=== PATIENT | female | born 1990 | race American Indian/Alaskan Native ===

== ENCOUNTER 2018-12-30 19:10 | Outpatient (CLI) | payer MEDICAID ==
[2018-12-30 20:50] VITALS: BP 112/74
== END 2018-12-30 20:18 | disposition home or self-care (01) ==
LOC: TRG 19:10
PROVIDERS: ATTEND Obstetrics & Gynecology
DX: O47.03 False labor before 37 completed weeks of gestation, third trimester (principal); Z3A.29 29 weeks gestation of pregnancy
CPT/HCPCS: 59025

== ENCOUNTER 2019-02-20 10:39 | Outpatient (CLI) | payer MEDICAID ==
[2019-02-20 11:21] VITALS: BP 126/79
[2019-02-20] MEDS ORDERED: LACTATED RINGERS 500 ML IV ONE (11:27)
[2019-02-20 11:52] LABS: Bilirubin,Urine NEG (Negative); Blood,Urine NEG (Negative); Color,Urine Straw (Yellow); Protein,Urine <15 mg/dL mg/dL (Negative); Urobilinogen,Urine < 2.0 mg/dL (<2.0)
== END 2019-02-20 13:16 | disposition home or self-care (01) ==
LOC: TRG 10:39
PROVIDERS: ATTEND Obstetrics & Gynecology
DX: O47.03 False labor before 37 completed weeks of gestation, third trimester (principal); Z3A.36 36 weeks gestation of pregnancy
CPT/HCPCS: 81001

== ENCOUNTER 2019-03-03 13:11 | Inpatient (IN) | payer MEDICAID ==
[2019-03-03] MEDS ORDERED: SUBLIMAZE IV PRN (14:07)
[2019-03-03] MEDS ORDERED: BRETHINE SUB-Q PRN (14:07)
[2019-03-03] MEDS ORDERED: XYLOCAINE 2% INFILTRATI ONE (14:07)
--- NOTE | 2019-03-03 14:20 | History and Physical Report ---
History of Present Illness Date of examination: 03/03/19 Date of admission: 03/03/19 13:12 Chief complaint: Leaking water from vagina History of present illness: 28 year old presents to L&D with complaint of leaking clear fluid from vagina since 12:30 PM today. She denies VB. She reports active movement. Patient received care at [facility] and records are available. LMP 06/07/2018. EDC 03/14/2019 (based on LMP and confirmed by 10 wk. US). significant for the following: trichomonas (treated and cured), anemia (treated with oral iron), mycoplasma genitalium positive during (treated and MENDEZ negative), GBS positive, overweight. labs are as follows: O+, antibody screen negative, rubella immune, RPR nonreactive, hepatitis B surface antigen negative, urine culture negative, HIV negative, hemoglobin electrophoresis normal, chlamydia negative, gonorrhea negative, quad screen negative, GBS positive, 1 hour sugar test 103. Past History Past Medical History: other (overweight, bilateral hip dislocation at (requiring multiple surgeries)) Past Surgical History: other (bilateral hip surgery (multiple surgeries for dislocated hips at , had several surgeries before age 10)) [facility] History: trichomonas (history of trichomonas during , treated and cured). denies: chlamydia, gonorrhea, hepatitis B, herpes, HIV, syphilis Family/Genetic History: diabetes, hypertension, other (asthma; patient with personal history of dislocated hips bilaterally at ) Social history: full code. denies: smoking, alcohol abuse, prescription drug abuse, IV drug use - Obstetrical History Expected Date of Delivery: 03/14/19 Actual Gestation: 38 Week(s) 3 Day(s) : 1 Para: 0 Hx # Term Pregnancies: 0 Number of Pregnancies: 0 Spontaneous Abortions: 0 Induced : 0 Number of Living Children: 0 Medications and Allergies Allergies Allergy/AdvReac Type Severity Reaction Status Date / Time Penicillins Allergy Rash Verified 02/20/19 10:47 Latex, Natural Rubber AdvReac Anaphylaxis Verified 02/20/19 10:48 Active Meds: Active Medications Ephedrine Sulfate (Ephedrine Sulfate) 10 mg IV Q2M PRN PRN Reason: Hypotension Fentanyl (Sublimaze) 100 mcg IV Q2H PRN PRN Reason: Labor Pain Oxytocin/Sodium Chloride (Pitocin/Ns 20 Unit/1000ml Drip) 20 units in 1,000 mls @ 125 mls/hr IV DIRECT CHRISTY Oxytocin/Sodium Chloride (Pitocin/Ns 30 Unit/500ml) 30 units in 500 mls @ 0 mls/hr IV TITR CHRISTY; Protocol Lactated Ringer's (Lactated Ringers) 1,000 mls @ 125 mls/hr IV DIRECT CHRISTY Lidocaine (Xylocaine 2%) 20 ml INFILTRATI ONCE ONE Stop: 03/03/19 14:08 Terbutaline Sulfate (Brethine) 0.25 mg SUB-Q ONCE PRN PRN Reason: Hyperstimulation/Hypertonicity Review of Systems All systems: negative (leaking clear fluid from vagina since 12:30 today) - Vital Signs Vital signs: Vital Signs Temp Pulse Resp BP Pulse Ox 98.8 F 93 H 18 141/87 98 03/03/19 13:58 03/03/19 13:58 03/03/19 13:58 03/03/19 13:58 03/03/19 13:58 Temp Pulse Resp BP Pulse Ox 98.8 F 102 H 18 141/87 98 03/03/19 13:58 03/03/19 14:00 03/03/19 13:58 03/03/19 13:59 03/03/19 14:00 - Physical Exam Cardiovascular: Regular rate, Normal S1, Normal S2 Lungs: Positive: Clear to auscultation Abdomen: Positive: normal appearance, soft. Negative: distention, tenderness, guarding, rigidity Genitourinary (Female): Positive: normal external genitalia, normal perenium. Negative: perineal/vulvar lesions (no lesions seen on careful exam with bright light upon admission) Vagina: Positive: other (clear fluid seen leaking from vagina) Uterus: Positive: enlarged (appropriate for gestational age) Anus/Rectum: Positive: normal perianal skin Extremities: Positive: normal. Negative: tenderness, edema - Obstetrical FHR: category 1 Uterine Contraction Monitor Mode: External Cervical Dilatation: 3 Cervical Effacement Percentage: 70 station: -3 Uterine Contraction Pattern: Irregular Uterine Contraction Intensity: Mild Results All other labs normal. Assessment and Plan A: at 38 weeks, 3 days gestation. Spontaneous rupture of membranes. GBS positive (no sensitivity testing result available). Penicillin allergy. Latex allergy. P: Admit. GBS prophylaxis with Vancomycin. Continuous EFM. Pitocin augmentation of labor.
[2019-03-03] MEDS ORDERED: PITOCin/NS 30 UNIT/500ML 30 UNITS/500 ML BAG IV SCH (15:00)
[2019-03-03] MEDS ORDERED: PITOCin/NS 20 UNIT/1000ML DRIP 20 UNITS/1,000 ML BAG IV SCH ×3 (15:00→20:00)
[2019-03-03] MEDS ORDERED: LACTATED RINGERS 1,000 ML IV SCH ×2 (15:00→17:00)
[2019-03-03 15:50] LABS: Hematocrit 35.4 % (30.3-42.9); Hemoglobin 11.7 gm/dl (10.1-14.3); Mean Corpuscular HGB Conc 33 % (30-34); Mean Corpuscular Volume 82 fl (79-97); Platelet Count 214 K/mm3 (140-440); Red Blood Count 4.29 M/mm3 (3.65-5.03); Red Cell Distribution Width 14.7 % (13.2-15.2)
[2019-03-03] MEDS ORDERED: VANCOMYCIN/NS 1 GM/250 ML 1 GM/250 ML BAG IV SCH (16:00)
[2019-03-03 16:17] LABS: Alanine Aminotransferase 10 units/L (7-56); Albumin 2.9 g/dL (3.9-5); BUN/Creatinine Ratio 15; Blood Urea Nitrogen 9 mg/dL (7-17); Calcium 8.8 mg/dL (8.4-10.2); Hemolysis Index 28
--- NOTE | 2019-03-03 16:37 | Event Note ---
Date: 03/03/19 Dr. Rivera spoke with patient and section was called.
[2019-03-03] MEDS ORDERED: REGLAN IV ONE (17:00)
[2019-03-03] MEDS ORDERED: CLEOCIN 900 MG/50 mL 900 MG/50 ML BAG IV NR (17:00)
[2019-03-03] MEDS ORDERED: BICITRA PO ONE (17:00)
[2019-03-03] MEDS ORDERED: PEPCID IV ONE (17:00)
--- NOTE | 2019-03-03 17:05 | Event Note ---
Date: 03/03/19 Ms. Andujar was admitted into the hospital today after spontaneously rupturing her membranes at 38 weeks and 3 days. Pelvic examination performed by the state wildlife officer Patsy Jolley CNM was significant for a vertex presentation which was spilling out the pelvis. 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 The loss of these surgeries happened when the patient was 16 years old. The patient has a limp when she walks. The patient's congenital hip problems raised concerns about the pelvic architecture whether this will allow for safe exit of the baby through the vagina. Even if this was possible, the flexion of the thighs required during the second stage of labor could result in dislocation of her joints. For these reasons a decision was made to deliver the baby by section. The patient, her as well as her mother understood. All questions were answered. The patient consented for delivery.
[2019-03-03] MEDS ORDERED: NARCAN 0.4 MG/1 ML IV PRN (17:07)
[2019-03-03] MEDS ORDERED: BENADRYL IV PRN (17:07)
[2019-03-03] MEDS ORDERED: PHENERGAN PR PRN (17:07)
[2019-03-03] MEDS ORDERED: DILAUDID IV PRN (17:07)
[2019-03-03] MEDS ORDERED: PHENERGAN PO PRN (17:07)
[2019-03-03] MEDS ORDERED: ZOFRAN IV PRN (17:07)
--- NOTE | 2019-03-03 17:10 | Anesthesia Consultation ---
Anesthesia Consult and Med Hx - Airway Anesthetic Teeth Evaluation: Good ROM Head & Neck: Adequate Mental/Hyoid Distance: Adequate Mallampati Class: Class I Intubation Access Assessment: Good - Pulmonary Exam CTA: Yes - Cardiac Exam Cardiac Exam: RRR - Pre-Operative Health Status ASA Pre-Surgery Classification: ASA2 Proposed Anesthetic Plan: Spinal - Pulmonary Hx Asthma: No COPD: No Hx Pneumonia: No - Cardiovascular System Hx Hypertension: No - Central Nervous System Hx Seizures: No Hx Psychiatric Problems: No - Endocrine Hx Renal Disease: No Hx End Stage Renal Disease: No Hx Hypothyroidism: No Hx Hyperthyroidism: No - Hematic Hx Anemia: No Hx Sickle Cell Disease: No - Other Systems Hx Alcohol Use: No
--- NOTE | 2019-03-03 17:10 | Anesthesia Day of Surgery ---
Anesthesia Day of Surgery - Day of Surgery Patient Examined: Yes Patient H&P Reviewed: Yes Patient is NPO: Yes Beta Blockers: No Cardiac Clearance: No Pulmonary Clearance: No Chevy's Test: N/A
[2019-03-03] MEDS ORDERED: SUBLIMAZE ONE (17:19)
[2019-03-03] MEDS ORDERED: NEO SYNEPHRINE/NS Syringe(OR USE) IV ONE (17:39)
[2019-03-03] MEDS ORDERED: WATER FOR IRRIG STERILE IR ONE (17:41)
[2019-03-03] MEDS ORDERED: NACL 0.9% IR ONE (17:41)
[2019-03-03] MEDS ORDERED: TORADOL ONE (17:59)
[2019-03-03] MEDS ORDERED: SODIUM CHLORIDE FLUSH SYRINGE 10 ML IV NR (18:00)
--- NOTE | 2019-03-03 18:54 | Post Anesthesia Evaluation ---
- Post Anesthesia Evaluation Patient Participated: Yes Airway Patent: Yes Stable Respiratory Function: Yes Nausea/Vomiting: No Temp > 96.8F: Yes Pain Manageable: Yes Adequeate Hydration: Yes Anesthesia Complications: No Block Receding Appropriately: Yes Patient on Ventilator: No
--- NOTE | 2019-03-03 19:05 | Operative Report ---
Operative Report Operative Report: Date of surgery: 03/03/2019 Admitting diagnoses: 1 term at 38 weeks and 3 days. 2 SROM 3. Congenital hip dislocation 4. Multiple hip surgeries Surgeon:C.MD Miguel Physical Testing Supervisor: Patsy Jolley Anesthesiologist: Khang Lara M.D. Anesthesia: Spinal block. Estimated blood loss: 4 50 mL Complications: None Findings: There was a live baby boy weighed 6 lbs. 8 oz., Apgars 9 and 9, in cephalic presentation within the false pelvis. Both ovaries and fallopian tubes as well as the uterus were all grossly normal. There was no peritoneal adhesions within the pelvis. All bowel movements as well as the greater omentum seen through the Pfannenstiel incision were grossly normal. Procedure in detail: The patient was taken to the operative spinal blockade. The patient was then placed in the straight supine position with a slight left lateral tilt after an indwelling Quezada catheter had been inserted. The patient was prepped and the abdomen. The drapes were applied. A timeout was done. The operation begun after the go-ahead from the anesthesiologist by making a Pfannenstiel incision. This incision was carried across the subcutaneous layer down to the fascia, which was divided transversely. The fascial incision was extended with the Blackwell scissors. The underlying recti abdominis muscle flaps were stripped from the fascia by combination of sharp and blunt dissection. The recti abdominis muscle flaps were in the midline to expose the anterior parietal peritoneum. This structure was pinched between 2 hemostats and divided after making sure there was no underlying viscera. The laparotomy was widened by stretching. The bladder blade was applied. The uterovesical p eritoneal flap was divided transversely allowing the bladder to the displaced caudally. A low transverse uterine incision was made down to the decidual layer. The cavity of the uterus was entered bluntly with the index finger. The uterine incision was widened allowing the head of the fetus to be delivered out of the false pelvis using fundal pressure. The airways were bulb suctioned beginning with the mouth. Fundal pressure combined with gentle traction on the mandibular processes of the baby's jaw delivered the rest of the baby. The umbilical cord was double clamped and divided. Baby was handed off safely to the pediatric team. The placenta was manually removed from the uterine cavity. The uterine cavity was explored and was empty of any placental remnants. The uterine incision was repaired in 2 layers with 0 Vicryl. Hemostasis was excellent. Blood and clots were cleared from the peritoneal cavity. The anterior parietal peritoneum was repaired with 0 Vicryl. The fascia was repaired with 0 Vicryl. The subcutaneous layer and several losing blood vessels which were thermally sealed using the Bovie. The skin was closed subcuticularly with 4-0 Vicryl on a Augusto needle. The sponge and instrument counts were correct. There were no complications. The estimated blood loss was 450 mL. The patient was transferred to the recovery room in excellent condition.
[2019-03-03] MEDS ORDERED: SENOKOT PO PRN (19:11)
[2019-03-03] MEDS ORDERED: TYLENOL PR PRN (19:11)
[2019-03-03] MEDS ORDERED: TUCKS PAD TP PRN (19:11)
[2019-03-03] MEDS ORDERED: MILK OF MAGNESIA PO PRN (19:11)
[2019-03-03] MEDS ORDERED: LANSINOH TP PRN (19:11)
[2019-03-03] MEDS ORDERED: D5LR 1,000 ML IV SCH (20:00)
[2019-03-03 20:01] LABS: Bilirubin,Urine NEG (Negative); Blood,Urine SM (Negative); Color,Urine Straw (Yellow); Mucus,Urine FEW /HPF; Protein,Urine <15 mg/dL mg/dL (Negative); Urobilinogen,Urine < 2.0 mg/dL (<2.0)
[2019-03-03] MEDS: TORADOL IV PRN (23:05)
[2019-03-04] MEDS: CLEOCIN 600 MG/50 mL 600 MG/50 ML BAG IV SCH ×2 (00:54→12:40)
[2019-03-04] MEDS: NORCO 5/325 PO PRN ×4 (03:01→23:26)
[2019-03-04] MEDS: TORADOL IV PRN (05:17)
[2019-03-04] MEDS ORDERED: M-M-R II VACCINE SUB-Q ONE (06:00)
[2019-03-04] MEDS ORDERED: BOOSTRIX IM ONE (06:00)
[2019-03-04] MEDS: FEOSOL PO SCH (09:18)
[2019-03-04] MEDS: PRENATAL VITAMIN PO SCH (09:19)
[2019-03-04 09:39] LABS: Hematocrit 31.8 % (30.3-42.9); Hemoglobin 10.4 gm/dl (10.1-14.3)
--- NOTE | 2019-03-04 10:13 | Progress Note ---
Assessment and Plan A: /postop day 1 S/P primary low transverse section. Anemia secondary to and blood loss. P: Oral iron supplementation. Encouraged patient to ambulate. Advance diet as tolerated. Subjective - Subjective Date of service: 03/04/19 Principal diagnosis: /postop day 1 S/P primary low transverse section Interval history: /postop day 1 S/P primary low transverse section. Doing well. She reports a small amount of lochia. Patient is voiding without difficulty, ambulating well, tolerating a liquid diet. She states she has just passed gas. Patient denies headache, dizziness, chest pain, cough, shortness of breath, leg pain, abdominal pain, nausea or vomiting, or depressive symptoms. Patient reports: appetite normal, voiding normally, pain well controlled, flatus, ambulating normally, no dizzy ambulation, no nauseated : doing well Objective - Vital Signs Latest vital signs: Vital Signs Temp Pulse Resp BP BP Pulse Ox 03/04/19 09:21 20 03/04/19 08:43 98.1 F 83 20 122/69 95 03/04/19 04:16 98.0 F 81 20 132/78 95 03/03/19 23:50 98.5 F 60 20 124/67 89 03/03/19 20:12 98.2 F 84 20 142/86 100 03/03/19 19:44 97.7 F 76 18 143/86 99 03/03/19 19:30 76 130/76 99 03/03/19 19:15 68 14 129/76 98 03/03/19 19:00 77 16 131/72 98 03/03/19 18:55 69 14 131/75 99 03/03/19 18:50 72 15 121/76 03/03/19 18:44 97.9 F 79 18 105/57 100 03/03/19 16:30 90 138/85 03/03/19 15:01 99 H 135/93 03/03/19 14:30 96 H 137/75 03/03/19 14:00 102 H 98 03/03/19 13:59 93 H 141/87 03/03/19 13:58 98.8 F 93 H 18 141/87 98 Intake and Output 03/03/19 03/04/19 03/04/19 23:59 07:59 15:59 Intake Total 1900 240 Output Total 250 500 Balance 1650 -260 Intake: IV 1900 Oral 240 Output: Urine 250 500 Indwelling Catheter 500 Other: Total, Intake Amount 240 Total, Output Amount 300 # Voids Indwelling Catheter 600 Estimated Blood Loss 450 - Exam Cardiovascular: Present: Regular rate, Normal S1, Normal S2, No murmurs Lungs: Present: Clear to auscultation Abdomen: Present: normal appearance, soft, normal bowel sounds. Absent: distention, tenderness, guarding, rigidity Uterus: Present: normal, firm, fundal height below umbilicus. Absent: bogginess, tenderness Extremities: Present: normal, edema (mild pedal edema bilaterally). Absent: ten derness Incision: Present: normal, dry, intact, dressed - Labs Labs: Abnormal lab results 03/03/19 03/03/19 Range/Units 14:14 14:14 WBC 11.7 H (4.5-11.0) K/mm3 MCH 27 L (28-32) pg Carbon Dioxide 20 L (22-30) mmol/L Creatinine 0.6 L (0.7-1.2) mg/dL Alkaline Phosphatase 227 H (35-129) units/L Albumin 2.9 L (3.9-5) g/dL
[2019-03-04] MEDS: IBUPROFEN PO PRN ×3 (12:41→23:26)
[2019-03-05] MEDS: IBUPROFEN PO PRN ×3 (05:20→15:57)
[2019-03-05] MEDS: NORCO 5/325 PO PRN ×2 (05:21→16:01)
--- NOTE | 2019-03-05 09:27 | Progress Note ---
Assessment and Plan - Patient Problems (1) S/P primary low transverse Current Visit: Yes Status: Acute Plan to address problem: Continue routine PP orders Anticipate d/c home tomorrow (2) Anemia Current Visit: Yes Status: Acute Qualifiers: Anemia type: iron deficiency Iron deficiency anemia type: inadequate dietar y iron intake Qualified Code(s): D50.8 - Other iron deficiency anemias Plan to address problem: Continue daily po iron supplementation Increase iron rich food intake Subjective - Subjective Date of service: 03/05/19 Principal diagnosis: /postop day 2 S/P primary low transverse section Interval history: See admission H & P, OB operative note and PP progress notes Patient reports: appetite normal, voiding normally, pain well controlled (with medications), flatus, ambulating normally, no bowel movement : doing well, bottle feeding (and ) Objective - Vital Signs Latest vital signs: Vital Signs Temp Pulse Resp BP BP Pulse Ox 03/05/19 07:26 98.2 F 85 18 126/71 03/05/19 01:13 98.0 F 89 20 132/68 96 03/04/19 17:38 20 03/04/19 16:21 98.0 F 94 H 18 123/78 98 03/04/19 13:29 97.9 F 92 H 20 113/62 98 03/04/19 12:41 20 Intake and Output 03/04/19 03/05/19 03/05/19 23:59 07:59 15:59 Intake Total 360 Output Total 1000 Balance -1000 360 Intake: Oral 360 Output: Urine 1000 Indwelling Catheter 1000 Other: Total, Intake Amount 360 Total, Output Amount 1000 # Voids Indwelling Catheter 2 - Exam Breasts: Present: normal Cardiovascular: Present: Regular rate Lungs: Present: Normal air movement Abdomen: Present: soft, tenderness, normal bowel sounds Uterus: Present: firm, fundal height below umbilicus (U-1) Extremities: Present: edema (Bilat ankles/feet) Deep Tendon Reflex Grade: Normal +2 Incision: Present: dry, intact (steri-stips intact, no drainage or signs of infection noted) - Labs Labs: Abnormal lab results 03/03/19 Range/Units 14:14 Lactate Dehydrogenase 241 H (91-180) units/L
--- NOTE | 2019-03-05 09:31 | Discharge Summary ---
Providers - Providers Date of Admission: 03/03/19 13:12 Date of discharge: 03/06/19 (1200) Attending physician: MIKE STRICKLAND MD Primary care physician: MIKE STRICKLAND MD Hospitalization Reason for admission: rupture of membranes Delivery: Procedure: primary low transverse Episiotomy: none Laceration: none Incision: dry, intact (steri-strips in place) Other procedures: none complications: none Discharge diagnosis: IUP at term delivered, other (S/P primary C/S) baby: male Hospital course: See admission H & P, OB operative note and PP progress notes Condition at discharge: Stable Disposition: DC-01 TO HOME OR SELFCARE - Discharge Diagnoses (1) S/P primary low transverse Status: Acute (2) Anemia Status: Acute Qualifiers: Anemia type: iron deficiency Iron deficiency anemia type: inadequate dietary iron intake Qualified Code(s): D50.8 - Other iron deficiency anemias Plan - Provider Discharge Summary Activity: routine, no sex for 6 weeks, no heavy lifting 4 weeks, no strenuous ex ercise Diet: routine (with iron rich foods) Instructions: routine Additional instructions: [] Smoking cessation referral if applicable(refer to patient education folder for contact #) [] Refer to [facility] Booklet Call your doctor immediately for: * Fever > 100.5 * Heavy vaginal bleeding ( >1 pad per hour) * Severe persistent headache * Shortness of breath * Reddened, hot, painful area to leg or breast * Drainage or odor from incision. * Keep incision clean and dry at all times and follow doctor's instructions regarding bathing/showering * Continue daily oral iron supplementation - Follow up plan Follow up: MIKE STRICKLAND MD [Primary Care Provider] - 7 Days
[2019-03-05] MEDS: FEOSOL PO SCH (10:27)
[2019-03-05] MEDS: PRENATAL VITAMIN PO SCH (10:28)
[2019-03-06] MEDS: IBUPROFEN PO PRN ×2 (00:15→10:22)
[2019-03-06] MEDS: NORCO 5/325 PO PRN (00:15)
[2019-03-06] MEDS: PRENATAL VITAMIN PO SCH (10:22)
[2019-03-06] MEDS: FEOSOL PO SCH (10:22)
[2019-03-06 16:06] VITALS: BP 139/84
== END 2019-03-06 18:11 | disposition home or self-care (01) | DRG 766 ==
LOC: TRG 13:11 → LD 13:12 → OB 22:54
PROVIDERS: ADMIT Obstetrics & Gynecology; ATTEND Obstetrics & Gynecology
PROC: 10D00Z1 Extraction of Products of Conception, Low, Open Approach (ICD-10-PCS; principal; 2019-03-03)
DX: O99.824 Streptococcus B carrier state complicating childbirth (principal); O99.02 Anemia complicating childbirth; D50.8 Other iron deficiency anemias; O75.89 Other specified complications of labor and delivery; Q65.1 Congenital dislocation of hip, bilateral; Z3A.38 38 weeks gestation of pregnancy; Z37.0 Single live birth; Z88.0 Allergy status to penicillin; Z91.040 Latex allergy status
CPT/HCPCS: 36415; 80053; 81001; 83615; 84550; 85014; 85018; 85027; 86592; 86706; 86803; 86850; 86900; 86901; 87806; G0378; J1885; J2370; J2405; J2590; J2765; J3010; J3370; J7120; J7121

== ENCOUNTER 2019-03-21 17:07 | Emergency (ER) | payer MEDICAID ==
--- NOTE | 2019-03-21 18:15 | Event Note ---
ED Screening Note Date of service: 03/21/19 Time: 18:14 ED Screening Note: 28 y/o female comes in for incision drainage with oder after 03/03/19. Denies any fevers. This initial assessment/diagnostic orders/clinical plan/treatment(s) is/are subject to change based on patients health status, clinical progression and re- assessment by fellow clinical providers in the ED. Further treatment and workup at subsequent clinical providers discretion. Patient/guardian urged not to elope from the ED as their condition may be serious if not clinically assessed and managed. Initial orders include:
[2019-03-21] MEDS ORDERED: CLEOCIN 900 MG/50 mL 900 MG/50 ML BAG IV ONE (19:43)
[2019-03-21] MEDS ORDERED: NACL 0.9% 1000 ML 1,000 ML IV ONE (19:44)
[2019-03-21] MEDS ORDERED: TORADOL IV ONE (19:44)
[2019-03-21 20:32] LABS: Basophils # (Auto) 0.1 K/mm3 (0.0-0.1); Basophils % (Auto) 0.9 % (0.0-1.8); Eosinophils # (Auto) 0.3 K/mm3 (0.0-0.4); Hemoglobin 11.3 gm/dl (10.1-14.3); Lymphocytes # (Auto) 2.9 K/mm3 (1.2-5.4); Lymphocytes % (Auto) 42.3 % (13.4-35.0); Mean Corpuscular HGB Conc 32 % (30-34); Mean Corpuscular Volume 82 fl (79-97); Monocytes # (Auto) 0.3 K/mm3 (0.0-0.8); Monocytes % (Auto) 4.2 % (0.0-7.3); Platelet Count 332 K/mm3 (140-440); Red Blood Count 4.29 M/mm3 (3.65-5.03); Red Cell Distribution Width 14.7 % (13.2-15.2)
[2019-03-21 20:47] LABS: Alanine Aminotransferase 8 units/L (7-56); Albumin 3.4 g/dL (3.9-5); BUN/Creatinine Ratio 13; Blood Urea Nitrogen 8 mg/dL (7-17); Hemolysis Index 8
[2019-03-21 21:53] VITALS: BP 129/78
--- NOTE | 2019-03-22 00:29 | Cat Scan Report ---
CT abdomen pelvis w con INDICATION / CLINICAL INFORMATION: suspected abscess from . TECHNIQUE: Axial CT imaging of abdomen and pelvis was performed with IV contrast only. Coronal and sagittal refo rmatted imaging obtained and reviewed. All CT scans at this location are performed using CT dose redu ction for ALARA by means of automated exposure control. COMPARISON: None available. FINDINGS: CT abdomen with contrast demonstrates normal appearance of the liver, spleen, pancreas, kidneys, and adrenal glands. Gallbladder is collapsed. No biliary dilatation. CT pelvis with contrast demonstrates mildly enlarged uterus consistent with recent status. There is small amount of free fluid throughout the posterior cul-de-sac. I do not see any finding to suggest abscess. Endometrium is mildly thickened in appearance. No gas is present within the endomet rium.. There is a 2 cm mass projecting within the posterior uterine body most likely representing fib roid. Mild inflammatory changes are present in the subcutaneous fat of the lower anterior pelvic wall consistent with history of recent section. Normal appendix is identified. GI tract is grossly normal. Both lung bases are clear. No significant acute osseous finding. Mild deformity of the right hip and degenerative changes incide ntally noted. IMPRESSION: 1. No evidence of abscess. 2. Postoperative changes are seen in the pelvis consistent with history of recent section. 3. Small amount of free fluid is present in the posterior cul-de-sac. 4. Endometrium is mildly thickened. This may just be normal postoperative status, but clinical correl ation is recommended to exclude possibility of endometritis. Signer Name: Georgiana Jett MD Signed: 03/22/2019 12:25 AM Workstation Name: Your Image by [employer]
--- NOTE | 2019-03-22 00:33 | Emergency Department Report ---
ED General Adult HPI - General Chief complaint: Skin/Abscess/Foreign Body Stated complaint: DRAINAGE Time Seen by Provider: 03/21/19 19:20 Source: patient Mode of arrival: Ambulatory Limitations: No Limitations - History of Present Illness Initial comments: Patient is A0 28-year-old -[place] female who is 3 weeks who presents to the ED with pain and purulent discharge from the C- section surgical site for the last 2 days. Patient admits to being involved in physical activity at home against her [facility] physician's advice. Patient states that she suspects that there has been dehiscence of the surgical site with pu rulent discharge and pain. Patient denies fever, chills, nausea, vomiting, abdominal pain, dizziness, dysuria, urinary frequency and urgency and headache. MD Complaint: Pain and discharge from surgical site -: Sudden, days(s) (2) Location: abdomen (suprapubic) Radiation: non-radiation Severity scale (0 -10): 5 Quality: aching, sharp Consistency: constant Improves with: none Worsens with: movement Associated Symptoms: denies other symptoms. denies: confusion, chest pain, cough, diaphoresis, fever/chills, headaches, loss of appetite, malaise, nausea/vomiting, rash, seizure, shortness of breath, syncope, weakness Treatments Prior to Arrival: none - Related Data Home Medications Medication Instructions Recorded Confirmed Last Taken Vitamin 1 tab PO DAILY 03/03/19 03/03/19 03/03/19 Previous Rx's Medication Instructions Recorded Last Taken Type Clindamycin [Clindamycin CAP] 300 mg PO Q8H #30 cap 03/22/19 Unknown Rx Ibuprofen [Motrin] 800 mg PO Q8HR PRN #20 tablet 03/22/19 Unknown Rx Allergies Allergy/AdvReac Type Severity Reaction Status Date / Time Penicillins Allergy Rash Verified 03/21/19 18:16 Latex, Natural Rubber AdvReac Anaphylaxis Verified 03/21/19 18:16 ED Review of Systems ROS: Stated complaint: DRAINAGE Other details as noted in HPI Constitutional: denies: chills, fever Eyes: denies: eye pain, eye discharge, vision change ENT: denies: ear pain, throat pain Respiratory: denies: cough, shortness of breath, wheezing Cardiovascular: denies: chest pain, palpitations Endocrine: no symptoms reported Gastrointestinal: other (Dehiscence from the surgical site with pain and discharge). denies: abdominal pain, nausea, diarrhea Genitourinary: denies: urgency, dysuria, discharge Musculoskeletal: denies: back pain, joint swelling, arthralgia Skin: other (Dehiscence of surgical site with discharge and pain). denies: rash, lesions Neurological: denies: headache, weakness, paresthesias Psychiatric: denies: anxiety, depression Hematological/Lymphatic: denies: easy bleeding, easy bruising ED Past Medical Hx - Past Medical History Previous Medical History?: No Hx Hypertension: No Hx Congestive Heart Failure: No Hx Diabetes: No Hx Deep Vein Thrombosis: No Hx Renal Disease: No Hx Sickle Cell Disease: No Hx Seizures: No Hx Asthma: No Hx COPD: No Hx HIV: No - Surgical History Past Surgical History?: Yes Additional Surgical History: (2018), bilateral hip surgery (2005) - Social History Smoking Status: Never Smoker Substance Use Type: None - Medications Home Medications: Home Medications Medication Instructions Recorded Confirmed Last Taken Type Vitamin 1 tab PO DAILY 03/03/19 03/03/19 03/03/19 History Clindamycin [Clindamycin CAP] 300 mg PO Q8H #30 cap 03/22/19 Unknown Rx Ibuprofen [Motrin] 800 mg PO Q8HR PRN #20 tablet 03/22/19 Unknown Rx ED Physical Exam - General Limitations: No Limitations General appearance: alert, in no apparent distress - Head Head exam: Present: atraumatic, normocephalic, normal inspection - Eye Eye exam: Present: normal appearance, PERRL, EOMI. Absent: scleral icterus Pupils: Present: normal accommodation - ENT ENT exam: Present: normal exam, normal orophraynx, mucous membranes moist, TM's normal bilaterally, normal external ear exam - Neck Neck exam: Present: normal inspection, full ROM. Absent: tenderness, meningismus, lymphadenopathy, thyromegaly - Respiratory Respiratory exam: Present: normal lung sounds bilaterally. Absent: respiratory distress, wheezes, stridor, chest wall tenderness, accessory muscle use - Cardiovascular Cardiovascular Exam: Present: regular rate, normal rhythm, normal heart sounds. Absent: systolic murmur, diastolic murmur, rubs, gallop - GI/Abdominal GI/Abdominal exam: Present: soft, tenderness (mildly tender suprapubic surgical site with purulent discharge), normal bowel sounds. Absent: distended, guarding, rebound, hyperactive bowel sounds, organomegaly - Rectal Rectal exam: Present: deferred - Extremities Exam Extremities exam: Present: normal inspection, full ROM, normal capillary refill - Back Exam Back exam: Present: normal inspection, full ROM. Absent: tenderness, CVA tenderness (R), CVA tenderness (L), muscle spasm, paraspinal tenderness - Neurological Exam Neurological exam: Present: alert, oriented X3, CN II-XII intact, normal gait, reflexes normal - Psychiatric Psychiatric exam: Present: normal affect, normal mood - Skin Skin exam: Present: warm, dry, normal color, other (Mild dehiscence of surgical site with mild purulent discharge and tenderness). Absent: rash ED Course Vital Signs 03/21/19 03/21/19 17:12 21:52 Temperature 98.1 F Pulse Rate 89 66 Respiratory 13 15 Rate Blood Pressure 153/85 129/78 [Right] O2 Sat by Pulse 99 98 Oximetry - Reevaluation(s) Reevaluation #1: 03/22/19 00:33 Patient is alert and oriented 3 and is not in distress. Patient was treated for pain and also given clindamycin 900 mg IV 1. Lab test results were reviewed and are unremarkable. Abdomen pelvis CT scan with contrast shows no abscess or sign of endometritis. There are no other abnormal findings in the abdomen and pelvis CT scan with contrast. On reevaluation, patient's pain is well controlled on medications and patient is hemodynamically stable. Patient was discharged home on medications including antibiotics and pain medications and advised to follow up with [facility] physician in 2 days for reevaluation. Patient is advised to return to the ED immediately if symptoms get worse. 03/22/19 00:34 ED Medical Decision Making - Lab Data Result diagrams: 03/21/19 20:26 03/21/19 20:26 - Radiology Data Radiology results: report reviewed, image reviewed Abdomen pelvis CT Scan w/contrast: No sign of abscess at the surgical site. No other abnormalities in the abdomen and pelvis - Medical Decision Making Patient is alert and oriented 3 and is not in distress. Patient was treated for pain and also given clindamycin 900 mg IV 1. Lab test results were reviewed and are unremarkable. Abdomen pelvis CT scan with contrast shows no abscess or sign of endometritis. There are no other abnormal findings in the abdomen and pelvis CT scan with contrast. On reevaluation, patient's pain is well controlled on medications and patient is hemodynamically stable. Patient was discharged home on medications including antibiotics and pain medications and advised to follow up with [facility] physician in 2 days for reevaluation. Patient is advised to return to the ED immediately if symptoms get worse. - Differential Diagnosis Dehiscence of surgical site; Cellulitis; Abscess; Endometritis Critical care attestation.: If time is entered above; I have spent that time in minutes in the direct care of this critically ill patient, excluding procedure time. ED Disposition Clinical Impression: Dehiscence of section wound, Disposition: TO HOME OR SELFCARE Is pt being admited?: No Does the pt Need Aspirin: No Condition: Stable Instructions: Wound Dehiscence (ED) Additional Instructions: Take medications with food, drink plenty of fluids and follow-up with her primary care physician or [facility] physician in 2 days for reevaluation. Return to the ED immediately if symptoms get worse. Prescriptions: Clindamycin [Clindamycin CAP] 300 mg PO Q8H #30 cap Ibuprofen [Motrin] 800 mg PO Q8HR PRN #20 tablet PRN Reason: Pain , Severe (7-10) Referrals: KELSI OLIVAS MD [Primary Care Provider] - 3-5 Days Time of Disposition: 00:38 Print Language: [place]
[2019-03-22 00:54] LABS: Bilirubin,Urine NEG (Negative); Blood,Urine NEG (Negative); Color,Urine Colorless (Yellow); Protein,Urine <15 mg/dL mg/dL (Negative); RBC,Urine < 1.0 /HPF (0.0-6.0); Urobilinogen,Urine < 2.0 mg/dL (<2.0)
== END 2019-03-22 00:56 | disposition home or self-care (01) ==
LOC: ED 17:07
DX: O90.0 Disruption of cesarean delivery wound (principal); Z88.0 Allergy status to penicillin; Z88.8 Allergy status to other drugs, medicaments and biological substances; Z98.890 Other specified postprocedural states; Z79.899 Other long term (current) drug therapy
CPT/HCPCS: 36415; 74177; 80053; 81001; 84703; 85025; 87040; 96365; 96375; 99284; J1885; J7030; Q9967